=== PATIENT | female | born 2000 | race Caucasian/White ===

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

== ENCOUNTER → 2023-05-01 | Outpatient (REF) | payer OTHER ==
[2023-05-01 13:02] LABS: BASO # 0.1 10^3/uL (0.0-0.2); BASO % 0.6 % (0.0-1.0); EOS # 0.2 10^3/uL (0.0-0.5); EOS % 1.9 % (0.0-3.0); HEMOGLOBIN 13.6 g/dl (12.0-15.5); LYMPH # 2.7 10^3/uL (1.5-5.0); LYMPH % 31.2 % (24.0-44.0); MEAN CORPUSCULAR HEMOGLOBIN 31.4 pg (27.0-33.0); MEAN CORPUSCULAR HGB CONC 34.9 g/dl (32.0-36.5); MEAN CORPUSCULAR VOLUME 90.1 fl (80.0-96.0); MONO # 0.6 10^3/uL (0.0-0.8); MONO % 6.5 % (2.0-8.0); NEUTROPHILS # 5.1 10^3/uL (1.5-8.5); NEUTROPHILS % 59.6 % (36.0-66.0); PLATELET COUNT, AUTOMATED 279 10^3/uL (150-450); RED BLOOD COUNT 4.33 10^6/uL (4.00-5.40); WHITE BLOOD COUNT 8.6 10^3/uL (4.0-10.0)
[2023-05-01 13:09] LABS: CHOLESTEROL LEVEL 165 MG/DL (<200); CHOLESTEROL RISK RATIO 3.17 (<5); HDL CHOLESTEROL 51.9 MG/DL (>40); LDL CHOLESTEROL 89.7 MG/DL (<100); NON-HDL-C 113.1 MG/DL; TRIGLYCERIDES LEVEL 117 MG/DL (<150)
[2023-05-01 13:11] LABS: THYROID STIMULATING HORMONE 1.213 uIU/ML (0.48-4.17); TOTAL 25(OH) VITAMIN D 16.5 NG/ML (20.0-100.0)
[2023-05-01 14:05] LABS: HEMOGLOBIN A1c 4.9 % (4.0-6.0)
== END ==
LOC: M LAB REF 12:13
PROVIDERS: ATTEND Nurse Practitioner Family
DX: E55.9 Vitamin D deficiency, unspecified (principal); R53.83 Other fatigue; Z11.9 Encounter for screening for infectious and parasitic diseases, unspecified; Z68.22 Body mass index [BMI] 22.0-22.9, adult

== ENCOUNTER → 2023-06-12 | Outpatient (CLI) | payer OTHER | LOC: M WHC 14:00 | PROVIDERS: ATTEND Nurse Practitioner Family | DX: M79.621 Pain in right upper arm (principal) ==

== ENCOUNTER 2024-07-22 17:40 | Emergency (ER) | payer OTHER ==
[~2024-07-22] VITALS: Ht 154.9 cm; Wt 55.2 kg
[2024-07-22] MEDS ORDERED: IBUP-1114 PO (17:50)
[2024-07-22] MEDS ORDERED: ENSK1TAB3 (17:50)
[2024-07-22] MEDS ORDERED: ONDANSETRON 4MG 2ML VIAL IV ONE (18:55)
[2024-07-22] MEDS ORDERED: NS 1,000 ML IV ONE (18:55)
[2024-07-22] MEDS: NS 1,000 ML IV ONE (19:05)
[2024-07-22] MEDS: ONDANSETRON 4MG 2ML VIAL IV ONE (19:06)
[2024-07-22 19:08] LABS: BASO # 0.1 10^3/uL (0.0-0.2); BASO % 0.4 % (0.0-1.0); EOS # 0.1 10^3/uL (0.0-0.5); HEMATOCRIT 39.2 % (36.0-47.0); LYMPH # 1.7 10^3/uL (1.5-5.0); LYMPH % 14.6 % (24.0-44.0); MEAN CORPUSCULAR HGB CONC 33.2 g/dl (32.0-36.5); MEAN CORPUSCULAR VOLUME 90.3 fl (80.0-96.0); MONO # 0.7 10^3/uL (0.0-0.8); MONO % 6.2 % (2.0-8.0); NEUTROPHILS # 8.9 10^3/uL (1.5-8.5); NEUTROPHILS % 77.5 % (36.0-66.0); PLATELET COUNT, AUTOMATED 287 10^3/uL (150-450); RED BLOOD COUNT 4.34 10^6/uL (4.00-5.40); WHITE BLOOD COUNT 11.4 10^3/uL (4.0-10.0)
[2024-07-22 19:32] LABS: LIPASE 26 U/L (12-53)
[2024-07-22 19:34] LABS: ALBUMIN 3.8 G/DL (3.2-5.2); ALKALINE PHOSPHATASE 50 U/L (46-116); ALT/SGPT 17 U/L (7.0-40); AST/SGOT 27 U/L (<34); BILIRUBIN,DIRECT 0.2 MG/DL (<0.4); BILIRUBIN,TOTAL 0.6 MG/DL (0.3-1.2); BLOOD UREA NITROGEN 10 MG/DL (9-23); CALCIUM LEVEL 9.2 MG/DL (8.5-10.1); CARBON DIOXIDE LEVEL 25 MMOL/L (20-31); CHLORIDE LEVEL 105 MMOL/L (98-107); CREATININE FOR GFR 0.73 MG/DL (0.55-1.30); GLOMERULAR FILTRATION RATE > 60.0 (>60); GLUCOSE, FASTING 102 MG/DL (60-100); POTASSIUM SERUM 4.2 MMOL/L (3.5-5.1); SODIUM LEVEL 135 MMOL/L (136-145); TOTAL PROTEIN 6.8 G/DL (5.7-8.2)
[2024-07-22 19:45] LABS: HCG, SERUM QUALITATIVE NEGATIVE (NEGATIVE)
[2024-07-22] MEDS ORDERED: KETOROLAC 30 MG/ML 1ML VIAL IV ONE (20:25)
[2024-07-22] MEDS: ACETAMINOPHEN *IV* 1,000 MG in IV 1 EA IV ONE (20:32)
[2024-07-22] MEDS ORDERED: FLOM0.4C39 PO (21:57)
[2024-07-22] MEDS ORDERED: KETO10TAB PO (21:57)
[2024-07-22] MEDS: KETOROLAC TROMETHAMINE 10 MG TAB PO ONE (22:37)
[2024-07-22] MEDS: TAMSULOSIN 0.4 MG CAP PO ONE (22:37)
[2024-07-22 22:41] VITALS: BP 126/71; TEMP 98.1; O2SAT 100
== END 2024-07-22 22:42 | disposition home or self-care (01) ==
LOC: M ED 17:40
DX: N20.1 Calculus of ureter (principal); F17.290 Nicotine dependence, other tobacco product, uncomplicated; Z91.09 Other allergy status, other than to drugs and biological substances; Z79.1 Long term (current) use of non-steroidal anti-inflammatories (NSAID); Z79.2 Long term (current) use of antibiotics
CPT/HCPCS: 74176; 80048; 80076; 81001; 83690; 84703; 85025; 87086; 96361; 96365; 96374; 99284; J0131; J2405